=== PATIENT | female | born 1955 | race African-American/Black ===

== ENCOUNTER 2021-10-14 12:28 | Emergency (ER) | payer SELFPAY ==
[~2021-10-14] VITALS: Ht 165.1 cm; Wt 62.5 kg
[2021-10-14 13:03] LABS: BASO # 0.1 x10^3/uL (0.0-0.2); BASO % 3 % (0-3); EOS # 0.1 x10^3/uL (0.0-0.7); EOS % 3 % (0-3); HEMOGLOBIN 12.4 g/dL (12.0-15.5); LYMPH # 1.5 x10^3/uL (1.0-4.8); LYMPH % 42 % (24-48); MEAN CORPUSCULAR HEMOGLOBIN 28 pg (25-35); MEAN CORPUSCULAR HGB CONC 33 g/dL (31-37); MEAN CORPUSCULAR VOLUME 84 fL (79-100); MONO # 0.3 x10^3/uL (0.0-1.1); MONO % 9 % (0-9); NEUT # 1.6 x10^3/uL (1.8-7.7); NEUT % 44 % (31-73); PLATELET COUNT 259 x10^3/uL (140-400); RED BLOOD COUNT 4.52 x10^6/uL (3.50-5.40); RED CELL DISTRIBUTION WIDTH 13.3 % (11.5-14.5); WHITE BLOOD COUNT 3.6 x10^3/uL (4.0-11.0)
--- NOTE | 2021-10-14 13:16 | PHYS DOC ---
Past Medical History Past Medical History: Diabetes-Type II, Seizure Additional Past Medical Histor: Neuropathy, chronic back pain General Adult EDM: Chief Complaint: SHORTNESS OF BREATH HPI: HPI: Patient is a 65 year old female with history of epilepsy, DM, neuropathy, chronic back pain who presents with shortness of breath, generalized fatigue, and subjective fevers at home. Symptoms started on Monday after having a seizure at home. No seizures since. Has been compliant with meds. No chest pain. Denies cough, congestion, rhinorrhea, sore throat. No lower extremity edema. No n/v, diarrhea, or abd pain. Urinates frequently which she attributes to diabetes, some mild suprapubic discomfort with urination. No urgency or hematuria. Review of Systems: Review of Systems: Constitutional: Reports subjective fever. Denies chills. [] Eyes: Denies change in visual acuity. [] HENT: Denies nasal congestion or sore throat. [] Respiratory: Denies cough. Reports shortness of breath. Cardiovascular: Denies chest pain or edema. [] GI: Denies abdominal pain, nausea, vomiting, bloody stools or diarrhea. [] : Denies burning with urination, frequency, urgency. Reports suprapubic discomfort with urination. [] Musculoskeletal: Denies back pain or joint pain. [] Integument: Denies rash. [] Neurologic: Denies headache, focal weakness or sensory changes. [] Psychiatric: Denies depression or anxiety. [] Heart Score: C/O Chest Pain: No Allergies: Allergies: Allergies Coded Allergies Type Severity Reaction Last Updated Verified Sulfa (Sulfonamide Antibiotics) Allergy Unknown Rash 10/14/21 Yes Physical Exam: PE: Constitutional: Well developed, well nourished, no acute distress, non-toxic appearance. [] HENT: Normocephalic, atraumatic, bilateral external ears normal, oropharynx moist, no oral exudates, nose normal. [] Eyes: PERRLA, EOMI, conjunctiva normal, no discharge. [] Neck: Normal range of motion, no tenderness, supple, no stridor. [] Cardiovascular:Heart rate regular rhythm, no murmur [] Lungs & Thorax: Bilateral breath sounds clear to auscultation [] Abdomen: Bowel sounds normal, soft, no tenderness, no masses, no pulsatile masses. [] Skin: Warm, dry, no erythema, no rash. [] Back: No tenderness, no CVA tenderness. [] Extremities: No tenderness, no cyanosis, no clubbing, ROM intact, no edema. [] Neurologic: Alert and oriented X 3, normal motor function, normal sensory function, no focal deficits noted. [] Psychologic: Affect normal, judgement normal, mood normal. [] EKG: EKG: Sinus rhythm. Rate 82. Left axis deviation. QTc 504, otherwise normal intervals. No Q waves, ST elevation, depression, or T wave inversions. [] Radiology/Procedures: Radiology/Procedures: [] Impression: [facility] [address] [place], [place] [id number] IMAGING REPORT Signed PATIENT: DEMETRIO ZURITA ACCOUNT: [id number] : 1955 LOCATION: ER AGE: 65 SEX: F EXAM STATUS: PRE ER ORD. PHYSICIAN: JORGE SMITH MD REASON: shortness of breath PROCEDURE: CHEST AP ONLY EXAM: Chest, single view. HISTORY: Shortness of breath. COMPARISON: None. FINDINGS: A frontal view of the chest is obtained. There is no infiltrate, pleural effusion or pneumothorax. There is a prominent cardiac silhouette, likel y accentuated due to portable technique. IMPRESSION: No acute pulmonary finding. Electronically signed by: Letty Anaya MD (10/14/2021 1:23 PM) [id number] DICTATED and SIGNED BY: LETTY ANAYA MD DATE: 10/14/21 [id number] 0 Course & Med Decision Making: Course & Med Decision Making Pertinent Labs and Imaging studies reviewed. (See chart for details) Patient is 65-year-old female with history of epilepsy, DM who presents with s hortness of breath, generalized fatigue, and subjective fevers. On arrival is afebrile, hemodynamically stable, satting well on room air. Well- appearing on exam. Clear to auscultation of the lungs, normal work of breathing. No chest pain to suggest ACS. EKG is nonischemic. No evidence of volume overload to suggest CHF No wheezing to suggest COPD We will check Covid, CXR to evaluate for pneumonia Basic labs to exclude electrolyte problems, metabolic acidosis, anemia. No lower extremity swelling, chest pain, vital sign abnormalities, or risk factors concerning for PE. Will not pursue dimer. 0115 CXR clear. COVID negative. Labs largely unremarkable. UA shows concern for urinary trichomoniasis. Will Rx metronidazole 500 mg BID for 7 days. 1603 Adam Disclaimer: Adam Disclaimer: This electronic medical record was generated, in whole or in part, using a voice recognition dictation system. Departure Departure Impression: Primary Impression: Trichomoniasis Disposition: HOME / SELF CARE / HOMELESS Condition: STABLE Patient Instructions: Trichomoniasis Additional Instructions: Your urine test showed that you had trichomonas. Please take a 14-day course of metronidazole. Please take the entire course. Please have your sexual partner tested for trichomonas to ensure that he does not reinfect you after your treatment. Return to the emergency department for high fevers, shaking chills, severe shortness of breath or other new/concerning symptoms. Scripts Metronidazole (METRONIDAZOLE) 500 Mg Tablet 1 TAB PO BID for 14 Days, #28 TAB Prov: JORGE SMITH MD 10/14/21 JORGE SMITH MD Oct 14, 2021 13:16
[2021-10-14 13:18] LABS: CREATININE 0.7 mg/dL (0.6-1.0); GFR 84.2; POTASSIUM 3.3 mmol/L (3.5-5.1)
--- NOTE | 2021-10-14 13:26 | RAD ---
EXAM: Chest, single view. HISTORY: Shortness of breath. COMPARISON: None. FINDINGS: A frontal view of the chest is obtained. There is no infiltrate, pleural effusion or pneumo thorax. There is a prominent cardiac silhouette, likely accentuated due to portable technique. IMPRESSION: No acute pulmonary finding. Electronically signed by: Letty Anaya MD (10/14/2021 1:23 PM) [id number]
--- NOTE | 2021-10-14 14:35 | EKG ---
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
[2021-10-14 15:47] LABS: BILIRUBIN,URINE NEGATIVE (NEG); CLARITY,URINE CLOUDY; COLOR,URINE YELLOW; NITRITE,URINE NEGATIVE (NEG); PH,URINE 5.5 (<5.0-8.0); PROTEIN,URINE NEGATIVE (NEG-TRACE)
[2021-10-14 15:57] LABS: BACTERIA,URINE MANY /HPF (0-FEW); TRICHOMONAS,URINE PRESENT
[2021-10-14 16:08] VITALS: BP 151/85
[2021-10-14] MEDS ORDERED: METR-34 PO (16:12)
--- NOTE | 2021-10-14 17:17 | NUR ---
IP: Informed pt of negative covid test. Pt verbalized understanding.
== END 2021-10-14 16:20 | disposition home or self-care (01) ==
LOC: ER 12:28
DX: A59.9 Trichomoniasis, unspecified (principal); E11.40 Type 2 diabetes mellitus with diabetic neuropathy, unspecified; G89.29 Other chronic pain; G40.909 Epilepsy, unspecified, not intractable, without status epilepticus; Z88.2 Allergy status to sulfonamides
CPT/HCPCS: 36415; 71045; 80048; 81001; 85025; 87426; 93005; 99285; U0003; U0005

== ENCOUNTER 2022-01-04 17:37 | Emergency (ER) | payer MEDICARE ==
[~2022-01-04] VITALS: Ht 165.1 cm; Wt 59.9 kg
[~2022-01-04 17:37] MED LIST: METR-34 PO
[2022-01-04 18:31] LABS: BASO % 1 % (0-3); EOS # 0.1 x10^3/uL (0.0-0.7); EOS % 3 % (0-3); HEMATOCRIT 37.6 % (36.0-47.0); HEMOGLOBIN 12.3 g/dL (12.0-15.5); LYMPH # 1.3 x10^3/uL (1.0-4.8); LYMPH % 36 % (24-48); MEAN CORPUSCULAR HEMOGLOBIN 27 pg (25-35); MEAN CORPUSCULAR HGB CONC 33 g/dL (31-37); MEAN CORPUSCULAR VOLUME 83 fL (79-100); MONO # 0.3 x10^3/uL (0.0-1.1); MONO % 9 % (0-9); NEUT # 1.8 x10^3/uL (1.8-7.7); NEUT % 50 % (31-73); PLATELET COUNT 210 x10^3/uL (140-400); RED BLOOD COUNT 4.51 x10^6/uL (3.50-5.40); RED CELL DISTRIBUTION WIDTH 13.1 % (11.5-14.5); WHITE BLOOD COUNT 3.5 x10^3/uL (4.0-11.0)
--- NOTE | 2022-01-04 19:06 | EKG ---
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
--- NOTE | 2022-01-04 19:53 | PHYS DOC ---
Past Medical History Past Medical History: Diabetes-Type II, Seizure Additional Past Medical Histor: Neuropathy, chronic back pain Past Surgical History: , Hysterectomy Smoking Status: Never Smoker Alcohol Use: None General Adult EDM: Chief Complaint: SEIZURE HPI: HPI: 66-year-old female past medical history of insulin-dependent diabetes, back pain and CVA (1998 s/p improved L sided weakness s/p rehab) presents to the ED with complaints of " I think my sugar was low but I was at work and did not have my glucometer." States for approximately 30 to 40 minutes she felt diaphoretic, shaky, speech was off and had blurry vision. States she sat down and drank orange soda and ate chips. States she frequently feels her sugar drops. Has been with her primary care physician Dr. Xiao Alejandre for the past year. Last saw him in October. States she takes anywhere from 25 to 40 units of NovoLog 3 times a day and 60 units of Lantus twice a day. States if her glucoses is in the 200s she takes 40 units and if glucose in is low 100s she takes 25 units. Dates she frequently feels her glucose 12 multiple times a week. Is been on this dosing regimen for the past year. Reports associated cough, feeling tired and feverish for the past 2 days. Has been vaccinated for COVID. 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 She had seizures once when she was a child. Reports she did not lose consciousness today or hit her head. Is not on any anticoagulants. Review of Systems: Review of Systems: Constitutional: Denies lethargy or chills. [] Eyes: Denies vision loss or eye drainage HENT: Denies nasal congestion or sore throat. [] Respiratory: Denies hemoptysis or shortness of breath. [] Cardiovascular: Denies chest pain or edema. [] GI: Denies abdominal pain, nausea, vomiting, bloody stools or diarrhea. [] : Denies dysuria or vaginal bleeding Musculoskeletal: Denies back pain or joint pain. [] Integument: Denies rash or diaphoresis Neurologic: Denies headache, focal weakness or sensory changes. [] Endocrine: Denies polyuria or polydipsia. [] Lymphatic: Denies swollen glands. [] Psychiatric: Denies depression or anxiety. [] Heart Score: C/O Chest Pain: No Risk Factors: Risk Factors: DM, Current or recent (<one month) smoker, HTN, HLP, family history of CAD, obesity. Risk Scores: Score 0 - 3: 2.5% MACE over next 6 weeks - Discharge Home Score 4 - 6: 20.3% MACE over next 6 weeks - Admit for Clinical Observation Score 7 - 10: 72.7% MACE over next 6 weeks - Early Invasive Strategies Allergies: Allergies: Allergies Coded Allergies Type Severity Reaction Last Updated Verified Sulfa (Sulfonamide Antibiotics) Allergy Unknown Rash 10/14/21 Yes Physical Exam: PE: Constitutional: Well developed, well nourished, no acute distress, non-toxic appearance. HENT: Normocephalic, atraumatic, no facial droop Eyes: Pupils equal and reactive, EOMI, conjunctiva normal, no discharge. Neck: Normal range of motion, supple, Cardiovascular: S1/2 present, regular rhythm Lungs & Thorax: Speaking in full sentences, bilateral equal chest rise, no tachypnea or increased work of breathing Abdomen: soft, no tenderness, Skin: Warm, dry, no erythema, no rash. [] Extremities: No tenderness, no cyanosis, no lower extremity edema Neurologic: Alert and oriented X 3, normal motor function, normal sensory function, no focal deficits noted. [] Psychologic: Affect normal, judgement normal, mood normal. [] Current Patient Data: Labs: Laboratory Tests Test 01/04/22 17:55 01/04/22 18:04 Glucose (Fingerstick) 286 mg/dL (70-99) H White Blood Count 3.5 x10^3/uL (4.0-11.0) L Red Blood Count 4.51 x10^6/uL (3.50-5.40) Hemoglobin 12.3 g/dL (12.0-15.5) Hematocrit 37.6 % (36.0-47.0) Mean Corpuscular Volume 83 fL (79-100) Mean Corpuscular Hemoglobin 27 pg (25-35) Mean Corpuscular Hemoglobin Concent 33 g/dL (31-37) Red Cell Distribution Width 13.1 % (11.5-14.5) Platelet Count 210 x10^3/uL (140-400) Neutrophils (%) (Auto) 50 % (31-73) Lymphocytes (%) (Auto) 36 % (24-48) Monocytes (%) (Auto) 9 % (0-9) Eosinophils (%) (Auto) 3 % (0-3) Basophils (%) (Auto) 1 % (0-3) Neutrophils # (Auto) 1.8 x10^3/uL (1.8-7.7) Lymphocytes # (Auto) 1.3 x10^3/uL (1.0-4.8) Monocytes # (Auto) 0.3 x10^3/uL (0.0-1.1) Eosinophils # (Auto) 0.1 x10^3/uL (0.0-0.7) Basophils # (Auto) 0.0 x10^3/uL (0.0-0.2) Laboratory Tests 01/04/22 18:04 Vital Signs: Vital Signs Date Time Temp Pulse Resp B/P (MAP) Pulse Ox O2 Delivery O2 Flow Rate FiO2 01/04/22 18:31 98.3 97 14 148/89 (108) 96 Room Air 98.3 EKG: EKG: Sinus rhythm 81 bpm, left axis deviation, QTC prolonged at 472, no T wave inve rsion, no ST elevation or ST depression Sinus rhythm 71 bpm, left axis deviation, normal intervals, no T wave inversion, no ST elevation or ST depression Radiology/Procedures: Radiology/Procedures: IMAGING REPORT Signed PATIENT: MARIAN ZURITA ACCOUNT: [id number] : 1955 LOCATION: ER AGE: 66 SEX: F EXAM STATUS: REG ER ORD. PHYSICIAN: SIS CABRERA DO REASON: seizure PROCEDURE: PORTABLE CHEST 1V EXAMINATION: XR CHEST 1V CLINICAL HISTORY: Seizure. EXAM DATE/TIME: 01/04/2022 6:55 PM COMPARISON: 10/14/2021 FINDINGS: Lines, Tubes, and Devices: None. Cardiomediastinal Silhouette: Normal heart size. Lungs and Pleura: No evidence of focal airspace consolidation or pleural effusion. Pulmonary vasculature unremarkable. Bones and Soft Tissues: Degenerative changes in the thoracic spine. IMPRESSION: No evidence of acute cardiopulmonary abnormality or significant interval change. Electronically signed by: Marlon Waller DO (01/04/2022 8:03 PM) UICLALITA DICTATED and SIGNED BY: MARLON WALLER DO DATE: 01/04/2220012650JRB4 0 Course & Med Decision Making: Course & Med Decision Making Pertinent Labs and Imaging studies reviewed. (See chart for details) Patient encounter for dizziness resolved prior to ED arrival after patient had something to eat and drink. Labs show hyperglycemia with no anion gap. No evidence of hypoglycemia. No associated chest pain, fever, shortness of breath or flulike symptoms. Per patient's history I suspect poorly controlled diabetes. Will need further evaluation with primary care physician regarding better management of her diabetes, will recommend endocrine for definitive management. Will discharge home with strict ED return precautions were given for syncope, seizure-like activity, head injury or confusion. Encouraged urgent outpatient follow-up with PMD and endocrine. Life-threatening processes were considered but are low suspicion at this time, given history, physical exam and ED workup. Pt was educated on all prescription medications and adverse effects. All patient's questions were answered and pt was stable at time of discharge. Life/limb-threatening differential includes but is not limited to, cer ebrovascular accident, cerebellar stroke, acute coronary syndrome, carbon monoxide poisoning or other toxidrome, syncope differential including cardiac arrhythmia/PE/aortic aneurysm or dissection/ACS, Guillan [place] syndrome, thyroid disease, infection, central and peripheral vertigo, intracranial hemorrhage, vertebrobasilar insufficiency, heat stroke, electrolyte disorder, rheumatologic or autoimmune disorder I have spoken with the patient and/or caregivers. I explained the patient's condition, diagnoses and treatment plan based on the information available to me at this time. I have answered the patient and/or caregiver's questions and addressed any concerns. The patient and/or caregivers have a good understanding of patient's diagnosis, condition and treatment plan as can be expected at this point. Vital signs have been stable. Patient's condition is stable and appropriate for discharge from the emergency department. Patient will pursue further outpatient evaluation with primary care physician or other designated or consulting physician as outlined in the discharge instruct ions. The patient and/or caregivers are agreeable to this plan of care and follow-up instructions have been explained in detail. The patient and/or caregivers have received these instructions in written form and have expressed an understanding of the discharge instructions. The patient and/or caregivers are aware that any significant change of condition or worsening of symptoms should prompt immediate return to this or the closest emergency department or call to 911. Adam Disclaimer: Adam Disclaimer: This electronic medical record was generated, in whole or in part, using a voice recognition dictation system. Departure Departure Impression: Primary Impression: Uncontrolled diabetes mellitus Disposition: HOME / SELF CARE / HOMELESS Condition: STABLE Referrals: XIAO PALOMARES JR, MD (PCP) Follow-up in 1 to 2 days for diabetes management and counseling Patient Instructions: Diabetes Meal Planning Guide, Insulin Treatment in Diabetes Additional Instructions: [facility] -Endocrinology FOR DEFINITIVE MANAGEMENT of diabetes [facility] [address] [place] [address] OR [facility] [address] [place] [address] OR [facility] [address] [facility] [address] [place], [place] [id number] EMERGENCY DEPARTMENT GENERAL DISCHARGE INSTRUCTIONS Thank you for coming to [facility] Emergency Department (ED) today and trusting us with you care. We trust that you had a positive experience in our Emergency Department. If you wish to speak to the department management, you may call the Director at [phone]. YOUR FOLLOW UP INSTRUCTIONS ARE FOLLOWS: 1. Do you have a private Doctor? If you do not have a private doctor, please ask for a resource list of physicians or clinics that may be able to assist you with follow up care. 2. The Emergency Physicain has interpreted your x-rays. The X-Ray specialist will also review them. If there is a change in the findings, you will be notified in 48 hours when at all possible. 3. A lab test or culture has been done, your results will be reviewed and you will be notified if you need a change in treatment. ADDITIONAL INSTRUCTIONS AND INFORMATION: 1. Your care today has been supervised by a physician who is specially trained in emergency care. Many problems require more than one evaluation for a complete diagnosis and treatment. We recommend that you schedule your follow up appointment as recommended to ensure complete treatment of you illness or injury. If you are unable to obtain follow up care and continue to have a problem, or if your condition worsens, we recommend that you return to the ED. 2. We are not able to safely determine your condition over the phone nor are we able to give sound medical advice over the phone. For these safety reasons, if you call for medical advice we will ask you to come to the ED for further evaluation. 3. If you have any questions regarding these discharge instructions please call the ED at [phone]. SAFETY INFORMATION: In the interest of safety, wellness, and injury prevention; we encourage you to wear your sealbelt, if you smoke; quite smoking, and we encourage family to use a protective helmet for bicycling and other sporting events that present an increased risk for head injury. IF YOUR SYMPTOMS WORSEN OR NEW SYMPTOMS DEVELOP, OR YOU HAVE CONCERNS ABOUT YOUR CONDITION; OR IF YOUR CONDITION WORSENS WHILE YOU ARE WAITING FOR YOUR FOLLOW UP APPO INTMENT; EITHER CONTACT YOUR PRIMARY CARE DOCTOR, THE PHYSICIAN WHOSE NAME AND NUMBER YOU WERE GIVEN, OR RETURN TO THE ED IMMEDIATELY. SIS BRODY DO Jan 04, 2022 19:53
--- NOTE | 2022-01-04 20:06 | RAD ---
EXAMINATION: XR CHEST 1V CLINICAL HISTORY: Seizure. EXAM DATE/TIME: 01/04/2022 6:55 PM COMPARISON: 10/14/2021 FINDINGS: Lines, Tubes, and Devices: None. Cardiomediastinal Silhouette: Normal heart size. Lungs and Pleura: No evidence of focal airspace consolidation or pleural effusion. Pulmonary vasculat ure unremarkable. Bones and Soft Tissues: Degenerative changes in the thoracic spine. IMPRESSION: No evidence of acute cardiopulmonary abnormality or significant interval change. Electronically signed by: Marlon Sutton DO (01/04/2022 8:03 PM) JOANNE
[2022-01-04 20:20] LABS: INFLUENZA A PATIENT NEGATIVE (NEGATIVE); INFLUENZA B PATIENT NEGATIVE (NEGATIVE)
[2022-01-04 20:47] LABS: CALCIUM 9.3 mg/dL (8.5-10.1); CREATININE 0.7 mg/dL (0.6-1.0); GFR 101.6; POTASSIUM 4.2 mmol/L (3.5-5.1)
[2022-01-04 20:49] LABS: ALBUMIN 4.3 g/dL (3.4-5.0); ALBUMIN/GLOBULIN RATIO 1.3 (1.0-1.7); MAGNESIUM 1.8 mg/dL (1.8-2.4); TOTAL BILIRUBIN 0.4 mg/dL (0.2-1.0); TOTAL PROTEIN 7.6 g/dL (6.4-8.2)
[2022-01-04 23:11] VITALS: BP 167/97
--- NOTE | 2022-01-05 00:31 | EKG ---
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
== END 2022-01-04 23:15 | disposition home or self-care (01) ==
LOC: ER 17:37
DX: E11.40 Type 2 diabetes mellitus with diabetic neuropathy, unspecified (principal); Z20.822 Contact with and (suspected) exposure to COVID-19; G89.29 Other chronic pain; Z86.73 Personal history of transient ischemic attack (TIA), and cerebral infarction without residual deficits; Z88.2 Allergy status to sulfonamides
CPT/HCPCS: 36415; 71045; 80053; 82550; 82962; 83735; 84484; 85025; 87428; 93005; 99285-25

== ENCOUNTER 2022-02-09 13:13 | Emergency (ER) | payer MEDICARE ==
[~2022-02-09] VITALS: Ht 165.1 cm; Wt 60.7 kg
[2022-02-09 14:07] LABS: BASO % 1 % (0-3); EOS # 0.1 x10^3/uL (0.0-0.7); EOS % 3 % (0-3); HEMATOCRIT 36.6 % (36.0-47.0); HEMOGLOBIN 12.1 g/dL (12.0-15.5); LYMPH # 1.3 x10^3/uL (1.0-4.8); LYMPH % 34 % (24-48); MEAN CORPUSCULAR HEMOGLOBIN 28 pg (25-35); MEAN CORPUSCULAR HGB CONC 33 g/dL (31-37); MEAN CORPUSCULAR VOLUME 84 fL (79-100); MONO # 0.2 x10^3/uL (0.0-1.1); MONO % 6 % (0-9); NEUT % 55 % (31-73); PLATELET COUNT 221 x10^3/uL (140-400); RED BLOOD COUNT 4.37 x10^6/uL (3.50-5.40); RED CELL DISTRIBUTION WIDTH 13.5 % (11.5-14.5); WHITE BLOOD COUNT 3.7 x10^3/uL (4.0-11.0)
[2022-02-09 14:19] LABS: CREATININE 0.8 mg/dL (0.6-1.0); GFR 87.1; POTASSIUM 3.3 mmol/L (3.5-5.1)
--- NOTE | 2022-02-09 14:19 | RAD ---
XR CHEST 1V Clinical History: Reason: tingling left side / Spl. Instructions: / History: Technique: AP view of the chest was obtained at 02/09/2022 1:59 PM. Comparison: January 04, 2022. Findings: The cardiomediastinal silhouette is normal. The pulmonary vasculature is normal. The lungs and pleura l margins are clear. Impression: No evidence of an acute cardiopulmonary process. Electronically signed by: Mp Frausto III, MD (02/09/2022 2:17 PM) [id number]
[2022-02-09 14:20] LABS: PROTHROMBIN TIME PATIENT 12.8 SEC (11.7-14.0)
[2022-02-09 14:24] LABS: ALBUMIN 3.7 g/dL (3.4-5.0); MAGNESIUM 1.6 mg/dL (1.8-2.4); TOTAL BILIRUBIN 0.2 mg/dL (0.2-1.0); TOTAL PROTEIN 7.5 g/dL (6.4-8.2)
[2022-02-09] MEDS ORDERED: CONTRAST GIVEN. MC PRN (14:30)
[2022-02-09] MEDS ORDERED: IOHEXOL 350 MG/ML 100 ML VIAL. IV ONE (14:30)
[2022-02-09 14:52] VITALS: BP 186/81
--- NOTE | 2022-02-09 14:58 | RAD ---
Exam Date: 02/09/2022 2:[address] HEAD/BRAIN WO Indication: Reason: tingling left side / Spl. Instructions: / History: . TECHNIQUE: Head CT was performed without intravenous contrast. One or more of the following dose re duction techniques were utilized: *Automated exposure control (AEC) *Adjustment of mA and/or kV according to patient size *Use of iterative reconstruction technique *CT scan done according to ALARA, or ALARA/IMAGE GENTLY FINDINGS: The ventricles and sulci are prominent consistent with cerebral volume loss. Patchy ill-defined low attenuation areas in the subcortical and periventricular white matter bilaterally are consistent with microvascular disease. There is no evidence of acute intracranial hemorrhage, extra-axial collecti on, mass effect, midline shift, or acute territorial infarct. No lesion of the skull base or the calv arium is seen. The visualized paranasal sinuses, mastoid air cells and orbits are normal in appearanc e. IMPRESSION: No evidence for acute intracranial abnormality. Volume loss and microvascular disease. Electronically signed by: Chris Hampton MD (02/09/2022 2:56 PM) [id number]
--- NOTE | 2022-02-09 15:23 | RAD ---
EXAM: CTA HEAD AND NECK W/WO CONTRAST DATE: 02/09/2022 2:23 PM INDICATION: tingling left side TECHNIQUE: CTA angiogram of the head and neck was obtained after IV bolus administration of 75 cc of Omnipaque 350. The images were sent to workstation and multiplanar reconstructions were obtained. Mu ltiplanar reconstruction images to include MIP and 3-D reconstruction images are submitted. One or more of the following dose reduction techniques were utilized: Automated exposure control (AEC ), Adjustment of mA and/or kV according to patient size, Use of iterative reconstruction technique reed ch as ASiR, CT scan done according to ALARA and image gently/image wisely COMPARISON: Noncontrast CT head done eaerlier. FINDINGS: CTA Head: The visualized distal internal carotid arteries, anterior and middle cerebral arteries are patent and normal caliber. The distal vertebral arteries, basilar artery, and posterior cerebral arteries are p atent and normal caliber. No aneurysm or arteriovenous malformation is seen. CTA Neck: Right carotid: The right common carotid artery is patent and normal caliber. The carotid bifurcation is normal. No stenosis of the right internal carotid artery per NASCET criteria. The right external c arotid artery is patent. Left carotid: The left common carotid artery is patent and normal caliber. The carotid bifurcation is normal. No stenosis of the left internal carotid artery per NASCET criteria. The left external carot id artery is patent. Right vertebral: The right vertebral artery is patent and normal caliber. Left vertebral: The left vertebral artery is patent and normal caliber. The visualized portions of the aortic arch are normal. The origins of the brachiocephalic and subclav sudhakar arteries are normal. No cervical lymphadenopathy. The thyroid gland is normal. The parotid and submandibular glands are no rmal. Poor dentition with multiple dental caries. Mild multilevel degenerative disc height loss. Multilevel disc protrusions and marginal osteophytes r esults in multilevel spinal canal stenosis. Multilevel uncovertebral and facet arthrosis with multile lamonte neural foraminal narrowing. The visualized portions of the lungs are clear. IMPRESSION: 1. No intracranial large vessel occlusion. 2. No stenosis of the cervical carotid or vertebral arteries. 3. Poor dentition with multiple dental caries PQRS Compliance Statement - Stenosis calculations for CT, MR and conventional angiography are based u greta measurement of the distal ICA diameter in accordance with the NASCET methodology. Electronically signed by: Adán Garcia MD (02/09/2022 3:21 PM) [facility]
[2022-02-09 15:42] LABS: BARBITURATES NEG (NEG); BENZODIAZEPINES NEG (NEG); CANNABINOIDS NEG (NEG); COCAINE NEG (NEG); METHADONE NEG (NEG); OPIATES NEG (NEG); PHENCYCLIDINE NEG (NEG)
[2022-02-09 15:45] LABS: AMPHETAMINE/METHAMPHETAMINE NEG (NEG)
[2022-02-09 15:46] LABS: RBC,URINE 0 /HPF (0-2)
[2022-02-09 15:47] LABS: BACTERIA,URINE MANY /HPF (0-FEW); WBC,URINE OCC /HPF (0-4)
--- NOTE | 2022-02-09 16:25 | PHYS DOC ---
Past Medical History Past Medical History: Diabetes-Type II, Hypertension, Seizure Additional Past Medical Histor: Neuropathy, chronic back pain Past Surgical History: , Hysterectomy Additional Past Surgical Histo: eye surgery Smoking Status: Never Smoker Alcohol Use: None General Adult EDM: Chief Complaint: NEURO SYMPTOMS/DEFICITS HPI: HPI: Patient is a 66 year old female with history of diabetes type 2, hypertension, diabetes neuropathy. Presenting to the ED today complaining of sharp intermittent 10 out of 10 pain throughout her body worse on the lower ex tremities and upper extremities, symptoms are chronic but she states that got worse in the last 3 days. Patient denies any injuries. She states whenever she has bad neuropathy she has trouble walking. She states she is currently on gabapentin and the doctor increased the dose on Monday last week. She states the doctor also put her on Trulicity for her diabetes. Patient states she works at [employer] and she is on her feet for long hours. She states her job is not understanding to excuse her from standing for long hours at work. She states she decided to come to be evaluated so she can get a note for work. Review of Systems: Review of Systems: Constitutional: Denies fever or chills. [] Eyes: Denies change in visual acuity. [] HENT: Denies nasal congestion or sore throat. [] Respiratory: Denies cough or shortness of breath. [] Cardiovascular: Denies chest pain or edema. [] GI: Denies abdominal pain, nausea, vomiting, bloody stools or diarrhea. [] : Denies dysuria. [] Musculoskeletal: Reports neuropathy pain throughout her body Integument: Denies rash. [] Neurologic: Denies headache, focal weakness or sensory changes. [] Endocrine: Denies polyuria or polydipsia. [] ] Psychiatric: Denies depression or anxiety. [] Heart Score: C/O Chest Pain: N/A Risk Factors: Risk Factors: DM, Current or recent (<one month) smoker, HTN, HLP, family history of CAD, obesity. Risk Scores: Score 0 - 3: 2.5% MACE over next 6 weeks - Discharge Home Score 4 - 6: 20.3% MACE over next 6 weeks - Admit for Clinical Observation Score 7 - 10: 72.7% MACE over next 6 weeks - Early Invasive Strategies Current Medications: Current Medications Medications (Trade) Dose Ordered Sig/Tommy Start Time Stop Time Status Last Admin Dose Admin Info (CONTRAST GIVEN -- Rx MONITORING) 1 each PRN DAILY PRN 02/09/22 14:30 02/11/22 14:29 Iohexol (Omnipaque 350 Mg/ml) 75 ml 1X ONCE 02/09/22 14:30 02/09/22 14:31 DC 02/09/22 14:44 75 ML Allergies: Allergies: Allergies Coded Allergies Type Severity Reaction Last Updated Verified Sulfa (Sulfonamide Antibiotics) Allergy Unknown Rash 10/14/21 Yes Physical Exam: PE: Constitutional: Well developed, well nourished, no acute distress, non-toxic appearance. [] HENT: Normocephalic, atraumatic, bilateral external ears normal, oropharynx moist, no oral exudates, nose normal. [] Eyes: PERRLA, EOMI, conjunctiva normal, no discharge. [] Neck: Normal range of motion, no tenderness, supple, no stridor. [] Cardiovascular:Heart rate regular rhythm, no murmur [] Lungs & Thorax: Bilateral breath sounds clear to auscultation [] Abdomen: Bowel sounds normal, soft, no tenderness, no masses, no pulsatile masses. [] Skin: Warm, dry, no erythema, no rash. [] Back: No tenderness, no CVA tenderness. [] Extremities: No tenderness, no cyanosis, no clubbing, ROM intact, no edema. [] Neurologic: Alert and oriented X 3, normal motor function, normal sensory function, no focal deficits noted. Cranial nerves II through XII intact Psychologic: Affect normal, judgement normal, mood normal. [] Current Patient Data: Labs: Laboratory Tests Test 02/09/22 13:45 02/09/22 15:10 White Blood Count 3.7 x10^3/uL (4.0-11.0) L Red Blood Count 4.37 x10^6/uL (3.50-5.40) Hemoglobin 12.1 g/dL (12.0-15.5) Hematocrit 36.6 % (36.0-47.0) Mean Corpuscular Volume 84 fL (79-100) Mean Corpuscular Hemoglobin 28 pg (25-35) Mean Corpuscular Hemoglobin Concent 33 g/dL (31-37) Red Cell Distribution Width 13.5 % (11.5-14.5) Platelet Count 221 x10^3/uL (140-400) Neutrophils (%) (Auto) 55 % (31-73) Lymphocytes (%) (Auto) 34 % (24-48) Monocytes (%) (Auto) 6 % (0-9) Eosinophils (%) (Auto) 3 % (0-3) Basophils (%) (Auto) 1 % (0-3) Neutrophils # (Auto) 2.0 x10^3/uL (1.8-7.7) Lymphocytes # (Auto) 1.3 x10^3/uL (1.0-4.8) Monocytes # (Auto) 0.2 x10^3/uL (0.0-1.1) Eosinophils # (Auto) 0.1 x10^3/uL (0.0-0.7) Basophils # (Auto) 0.0 x10^3/uL (0.0-0.2) Prothrombin Time 12.8 SEC (11.7-14.0) Prothrombin Time INR 1.0 (0.8-1.1) Activated Partial Thromboplast Time 26 SEC (24-38) Sodium Level 138 mmol/L (136-145) Potassium Level 3.3 mmol/L (3.5-5.1) L Chloride Level 103 mmol/L (98-107) Carbon Dioxide Level 26 mmol/L (21-32) Anion Gap 9 (6-14) Blood Urea Nitrogen 13 mg/dL (7-20) Creatinine 0.8 mg/dL (0.6-1.0) Estimated GFR (Cockcroft-Gault) 87.1 BUN/Creatinine Ratio 16 (6-20) Glucose Level 206 mg/dL (70-99) H Calcium Level 9.0 mg/dL (8.5-10.1) Magnesium Level 1.6 mg/dL (1.8-2.4) L Total Bilirubin 0.2 mg/dL (0.2-1.0) Aspartate Amino Transferase (AST) 10 U/L (15-37) L Alanine Aminotransferase (ALT) 17 U/L (14-59) Alkaline Phosphatase 91 U/L (46-116) Troponin I High Sensitivity 5 ng/L (4-50) VA-Tap-J-Type Natriuretic Peptide 29 pg/mL (0-124) Total Protein 7.5 g/dL (6.4-8.2) Albumin 3.7 g/dL (3.4-5.0) Albumin/Globulin Ratio 1.0 (1.0-1.7) Thyroid Stimulating Hormone (TSH) 1.043 uIU/mL (0.358-3.74) Urine Collection Type Unknown Urine Color (Auto) Colorless Urine Turbidity Clear Urine pH (Auto) 6.5 (<5.0-8.0) Urine Specific [place] 1.022 (1.000-1.030) Urine Protein (Auto) Negative mg/dL (Negative) Urine Glucose (Auto)(UA) 500 mg/dL (Negative) Urine Ketones (Auto) Negative mg/dL (Negative) Urine Blood (Auto) Negative (Negative) Urine Nitrite Negative (Negative) Urine Bilirubin (Auto) Negative (Negative) Urine Urobilinogen (Auto) Normal mg/dL (Normal) Urine Leukocyte Esterase (Auto) Negative (Negative) Urine RBC 0 /HPF (0-2) Urine WBC Occ /HPF (0-4) Urine Squamous Epithelial Cells Occ /LPF Urine Bacteria Many /HPF (0-FEW) Urine Opiates Screen Neg (NEG) Urine Methadone Screen Neg (NEG) Urine Barbiturates Neg (NEG) Urine Phencyclidine Screen Neg (NEG) Urine Amphetamine/Methamphetamine Neg (NEG) Urine Benzodiazepines Screen Neg (NEG) Urine Cocaine Screen Neg (NEG) Urine Cannabinoids Screen Neg (NEG) Urine Ethyl Alcohol Neg (NEG) Laboratory Tests 02/09/22 13:45 Laboratory Tests 02/09/22 13:45 Vital Signs: Vital Signs Date Time Temp Pulse Resp B/P (MAP) Pulse Ox O2 Delivery O2 Flow Rate FiO2 02/09/22 14:52 83 186/81 (116) 98 Room Air 02/09/22 13:42 97.0 20 97.0 EKG: EK interpreted by Dr. Ortega sinus rhythm heart rate 90 no STEMI Radiology/Procedures: Radiology/Procedures: []PROCEDURE: CT ANGIOGRAPHY HEAD AND NECK EXAM: CTA HEAD AND NECK W/WO CONTRAST DATE: 02/09/2022 2:23 PM INDICATION: tingling left side TECHNIQUE: CTA angiogram of the head and neck was obtained after IV bolus administration of 75 cc of Omnipaque 350. The images were sent to workstation and multiplanar reconstructions were obtained. Multiplanar reconstruction images to include MIP and 3-D reconstruction images are submitted. One or more of the following dose reduction techniques were utilized: Automated exposure control (AEC), Adjustment of mA and/or kV according to patient size, Use of iterative reconstruction technique such as ASiR, CT scan done according to ALARA and image gently/image wisely COMPARISON: Noncontrast CT head done eaerlier. FINDINGS: CTA Head: The visualized distal internal carotid arteries, anterior and middle cerebral arteries are patent and normal caliber. The distal vertebral arteries, basilar artery, and posterior cerebral arteries are patent and normal caliber. No aneurysm or arteriovenous malformation is seen. CTA Neck: Right carotid: The right common carotid artery is patent and normal caliber. The carotid bifurcation is normal. No stenosis of the right internal carotid artery per NASCET criteria. The right external carotid artery is patent. Left carotid: The left common carotid artery is patent and normal caliber. The carotid bifurcation is normal. No stenosis of the left internal carotid artery per NASCET criteria. The left external carotid artery is patent. Right vertebral: The right vertebral artery is patent and normal caliber. Left vertebral: The left vertebral artery is patent and normal caliber. The visualized portions of the aortic arch are normal. The origins of the brachiocephalic and subclavian arteries are normal. No cervical lymphadenopathy. The thyroid gland is normal. The parotid and submandibular glands are normal. Poor dentition with multiple dental caries. Mild multilevel degenerative disc height loss. Multilevel disc protrusions and marginal osteophytes results in multilevel spinal canal stenosis. Multilevel uncovertebral and facet arthrosis with multilevel neural foraminal narrowing. The visualized portions of the lungs are clear. IMPRESSION: 1. No intracranial large vessel occlusion. 2. No stenosis of the cervical carotid or vertebral arteries. 3. Poor dentition with multiple dental caries PQRS Compliance Statement - Stenosis calculations for CT, MR and conventional angiography are based upon measurement of the distal ICA diameter in accordance with the NASCET methodology. Electronically signed by: Raven Garcia MD (02/09/2022 3:21 PM) [facility] DICTATED and SIGNED BY: RAVEN GARCIA MD DATE: 02/09/22 1512 PROCEDURE: CT HEAD WO CONTRAST Exam Date: 02/09/2022 2:[address] HEAD/BRAIN WO Indication: Reason: tingling left side / Spl. Instructions: / History: . TECHNIQUE: Head CT was performed without intravenous contrast. One or more of the following dose reduction techniques were utilized: *Automated exposure control (AEC) *Adjustment of mA and/or kV according to patient size *Use of iterative reconstruction technique *CT scan done according to ALARA, or ALARA/IMAGE GENTLY FINDINGS: The ventricles and sulci are prominent consistent with cerebral volume loss. Patchy ill-defined low attenuation areas in the subcortical and periventricular white matter bilaterally are consistent with microvascular disease. There is no evidence of acute intracranial hemorrhage, extra-axial collection, mass effect, midline shift, or acute territorial infarct. No lesion of the skull base or the calvarium is seen. The visualized paranasal sinuses, mastoid air cells and orbits are normal in appearance. IMPRESSION: No evidence for acute intracranial abnormality. Volume loss and microvascular disease. Electronically signed by: Annabelle Hampton MD (02/09/2022 2:56 PM) [id number] DICTATED and SIGNED BY: ANNABELLE HAMPTON MD DATE: 02/09/22 1450 PROCEDURE: PORTABLE CHEST 1V XR CHEST 1V Clinical History: Reason: tingling left side / Spl. Instructions: / History: Technique: AP view of the chest was obtained at 02/09/2022 1:59 PM. Comparison: January 04, 2022. Findings: The cardiomediastinal silhouette is normal. The pulmonary vasculature is normal. The lungs and pleural margins are clear. Impression: No evidence of an acute cardiopulmonary process. Electronically signed by: Connie Voss III, MD (02/09/2022 2:17 PM) [id number] DICTATED and SIGNED BY: CONNIE VOSS III, MD DATE: 02/09/22 1416 Course & Med Decision Making: Course & Med Decision Making Pertinent Labs and Imaging studies reviewed. (See chart for details) This is a 66-year-old female patient presenting to the ED today complaining of pain throughout her body from neuropathy. 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 Recommended she talks to her PCP and see if they can give her a note for adjusted work activities CT head, CTA head and neck negative for any acute findings, CBC with WBC of 3.7 this is her baseline, EKG is negative, CMP with glucose of 206, history of diabetes, anion gap and CO2 are normal. Blood pressure on arrival to the ED is 197/108 with a heart rate of 92, patient's blood pressure started coming down to 186/81, heart rate stayed in the 80s, she states she has blood pressure medicine do as soon as she gets home. She states her doctor has been adjusting her medicines and she would prefer not to take any more medicine in the ED that would interfere with what her doctor is doing. She has no headache, no neurological symptoms. She was discharged to home. Adam Disclaimer: Adam Disclaimer: This electronic medical record was generated, in whole or in part, using a voice recognition dictation system. Departure Departure Impression: Primary Impression: Neuropathy Additional Impressions: Hyperglycemia High blood pressure Qualified Codes: I10 - Essential (primary) hypertension Disposition: 01 HOME / SELF CARE / HOMELESS Condition: STABLE Referrals: XIAO PALOMARES JR, MD (PCP) Follow-up in the course of this week Patient Instructions: Diabetic Neuropathy, Hyperglycemia, Hypertension Additional Instructions: You were evaluated in the medicine for neuropathy. Please follow-up with your doctor as soon as you can. Continue taking your medicines at home as prescribed KYLIE MERINO APRN Feb 09, 2022 16:25
--- NOTE | 2022-02-10 10:23 | EKG ---
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
== END 2022-02-09 16:36 | disposition home or self-care (01) ==
LOC: ER 13:13
DX: E11.40 Type 2 diabetes mellitus with diabetic neuropathy, unspecified (principal); I10 Essential (primary) hypertension; G89.29 Other chronic pain; R07.89 Other chest pain; Z90.710 Acquired absence of both cervix and uterus; Z88.2 Allergy status to sulfonamides
CPT/HCPCS: 36415; 70450; 70496; 70498; 71045; 80053; 80307; 81001; 83735; 83880; 84443; 84484; 85025; 85610; 85730; 87077; 87086; 87186; 93005; 99285; Q9967